=== PATIENT | male | born 2000 | race Caucasian/White ===

== ENCOUNTER 2024-02-15 17:02 | Emergency (ER) | payer SELFPAY ==
[~2024-02-15] VITALS: Wt 69.3 kg
[2024-02-15] MEDS ORDERED: Ketorolac 30 MG/ML VIAL IV ONE (17:30)
[2024-02-15] MEDS ORDERED: NS 1,000 ML IV ONE (17:30)
[2024-02-15] MEDS ORDERED: Ondansetron 4 MG/2 ML VIAL IV ONE (17:30)
[2024-02-15 17:35] LABS: HEMATOCRIT 47.8 % (42.0-52.0); HEMOGLOBIN 16.5 g/dL (13.5-18.0); MEAN CELL VOLUME 84 fl (78-100); MEAN CORPUSCULAR HEMOGLOBIN 29 pg (27-31); MEAN CORPUSCULAR HGB CONC 35 g/dL (33-37); MEAN PLATELET VOLUME 10.4 fl (7.4-10.4); PLATELET COUNT 286 K/mm3 (130-400); RED CELL DISTRIBUTION WIDTH 12.4 % (11.5-14.5)
[2024-02-15 17:40] LABS: WHITE BLOOD COUNT 23.7 K/mm3 (4.8-10.8)
[2024-02-15 17:41] LABS: ALBUMIN 4.9 g/dL (3.5-5.0)
[2024-02-15 17:42] LABS: CALCIUM 10.1 mg/dL (8.3-10.5)
[2024-02-15 17:44] LABS: TOTAL PROTEIN 8.1 g/dL (6.4-8.3)
[2024-02-15 17:45] LABS: TOTAL BILIRUBIN 3.7 mg/dL (0.2-1.2)
[2024-02-15 17:58] LABS: BAND 13 % (0-10); LYMPHOCYTE 6 % (20-51); MONOCYTE 11 % (3-10); NEUTROPHILS 70 % (42-75)
[2024-02-15] MEDS ORDERED: Iohexol 300 - 100 ML VIAL IV ONE (18:06)
[2024-02-15 18:50] LABS: URINE APPEARANCE CLEAR (CLEAR); URINE BILIRUBIN NEGATIVE (NEGATIVE); URINE BLOOD NEGATIVE (NEGATIVE); URINE COLOR YELLOW (YELLOW); URINE GLUCOSE NEGATIVE (NEGATIVE); URINE KETONE 1+ (NEGATIVE); URINE LEUKOCYTE ESTERASE NEGATIVE (NEGATIVE); URINE NITRATE NEGATIVE (NEGATIVE); URINE PROTEIN(semi-quant) NEGATIVE (NEGATIVE); URINE WBC 0-1 /hpf (0-3)
[2024-02-15] MEDS ORDERED: KETOROLAC10 MG PO (19:15)
[2024-02-15] MEDS ORDERED: ZOFRAN ODT4 MG PO (19:15)
[2024-02-15 19:30] VITALS: BP 133/72
== END 2024-02-15 19:30 | disposition home or self-care (01) ==
LOC: ED 17:02
PROVIDERS: Family Medicine
DX: A08.4 Viral intestinal infection, unspecified (principal); R00.0 Tachycardia, unspecified
CPT/HCPCS: J1885; J2405; J7030; Q9967

== ENCOUNTER 2024-03-02 06:36 | Emergency (ER) | payer SELFPAY ==
[~2024-03-02] VITALS: Ht 188 cm; Wt 69.1 kg
[~2024-03-02 06:36] MED LIST: KETOROLAC10 MG PO; ZOFRAN ODT4 MG PO
[2024-03-02 08:05] LABS: BASO # 0.04 K/mm3 (0.02-0.10); EOS # 0.06 K/mm3 (0.04-0.40); EOS % 0.4 % (0.0-4.0); HEMATOCRIT 42.6 % (42.0-52.0); HEMOGLOBIN 14.4 g/dL (13.5-18.0); LYMPH# 1.79 K/mm3 (1.50-4.00); MEAN CELL VOLUME 86 fl (78-100); MEAN CORPUSCULAR HEMOGLOBIN 29 pg (27-31); MEAN CORPUSCULAR HGB CONC 34 g/dL (33-37); MEAN PLATELET VOLUME 9.6 fl (7.4-10.4); MONO # 1.45 K/mm3 (0.20-0.80); NEU # 11.84 K/mm3 (1.40-6.50); PLATELET COUNT 280 K/mm3 (130-400); RED BLOOD COUNT 4.96 M/mm3 (4.20-5.60); RED CELL DISTRIBUTION WIDTH 12.2 % (11.5-14.5); WHITE BLOOD COUNT 15.2 K/mm3 (4.8-10.8)
[2024-03-02 08:13] LABS: ALBUMIN 4.3 g/dL (3.5-5.0)
[2024-03-02 08:15] LABS: CALCIUM 9.8 mg/dL (8.3-10.5)
[2024-03-02 08:16] LABS: TOTAL PROTEIN 7.5 g/dL (6.4-8.3)
[2024-03-02 08:18] LABS: TOTAL BILIRUBIN 1.7 mg/dL (0.2-1.2)
[2024-03-02] MEDS ORDERED: AZITHROMYCIN 500MGPK PO (08:52)
[2024-03-02] MEDS ORDERED: Azithromycin 250 MG TAB PO ONE (09:00)
[2024-03-02 09:09] VITALS: BP 118/56
== END 2024-03-02 09:11 | disposition home or self-care (01) ==
LOC: ED 06:36
PROVIDERS: Physician Assistant
DX: J02.0 Streptococcal pharyngitis (principal); Z88.0 Allergy status to penicillin